=== PATIENT | female | born 1995 | race American Indian/Alaskan Native ===

== ENCOUNTER 2017-09-01 05:23 | Emergency (ER) | payer MEDICAID ==
[2017-09-01 05:34] VITALS: BP 110/78
[2017-09-01 06:25] LABS: Basophils % (Auto) 0.7 % (0.0-1.8); Eosinophils % (Auto) 3.4 % (0.0-4.3); Hematocrit 37.6 % (30.3-42.9); Hemoglobin 12.8 gm/dl (10.1-14.3); Mean Corpuscular HGB Conc 34 % (30-34); Mean Corpuscular Hemoglobin 29 pg (28-32); Mean Corpuscular Volume 85 fl (79-97); Platelet Count 258 K/mm3 (140-440); Red Cell Distribution Width 15.1 % (13.2-15.2); White Blood Count 5.5 K/mm3 (4.5-11.0)
[2017-09-01 06:38] LABS: Alanine Aminotransferase 10 units/L (7-56); Albumin 4.3 g/dL (3.9-5); Albumin/Globulin Ratio 1.5 %; Alkaline Phosphatase 56 units/L (35-129); Anion Gap 18 mmol/L; BUN/Creatinine Ratio 20; Blood Urea Nitrogen 8 mg/dL (7-17); Calcium 8.6 mg/dL (8.4-10.2); Carbon Dioxide 23 mmol/L (22-30); Chloride 104.6 mmol/L (98-107); Glucose 90 mg/dL (65-100); Lipase 23 units/L (13-60); Potassium 3.8 mmol/L (3.6-5.0); Sodium 142 mmol/L (137-145); Total Protein 7.2 g/dL (6.3-8.2)
[2017-09-01 07:23] LABS: Bilirubin,Urine NEG (Negative); Blood,Urine LG (Negative); Ketones,Urine NEG (Negative); Leukocyte Esterase,Urine TR (Negative); Nitrite,Urine NEG (Negative); Urobilinogen,Urine < 2.0 mg/dL (<2.0)
[2017-09-01 07:31] LABS: RBC,Urine > 182.0 /HPF (0.0-6.0)
[2017-09-01] MEDS ORDERED: TORADOL IM ONE ×2 (10:42→10:43)
--- NOTE | 2017-09-01 10:44 | Emergency Department Report ---
ED Abdominal Pain HPI - General Chief Complaint: Abdominal Pain Stated Complaint: LOWER ABD/UPPER BACK PAIN Time Seen by Provider: 09/01/17 09:35 Source: patient Mode of arrival: Wheelchair Limitations: No Limitations - History of Present Illness Initial Comments: This is a 22-year-old female nontoxic, well nourished in appearance, no acute signs of distress presents to the ED complaining of pelvic pain, bilateral thigh pain and low back pain 3 days. He describes the pain as cramping sensation and bilateral thighs and low back pain. Patient denies any abdominal pain, nausea, vomiting, chest pain, shortness of breath, numbness, tingling, dysuria, polyuria, vaginal discharge, hematuria area, fever, chills, stiff neck or headache. Patient states she is currently on her menstrual cycle. Patient stated she currently develops similar symptoms prior to her menstrual cycle but stated symptoms are usually resolved the day of menstrual cycle. Patient stated today is the second day of her menstrual cycle and symptoms has not resolved yet. Patient stated she came into the emergency room to evaluate the reason why she is having cramping sensation because initiated. Subsided by now , as per patient stated. Patient denies any allergies. MD Complaint: other (pelvic cramping pain) -: days(s) (3) Radiation: none Migration to: no migration Severity: mild Severity scale (0 -10): 4 Quality: cramping Consistency: constant Improves With: nothing Worsens With: nothing Associated Symptoms: denies other symptoms. denies: nausea, vomiting, diarrhea , fever, chills, constipation, dysuria, hematemesis, hematochezia, melena, hematuria, anorexia, syncope - Related Data Home Medications Medication Instructions Recorded Confirmed Last Taken Percocet 5/325 mg 1 tab PO Q6H PRN 08/09/16 08/09/16 Unknown Previous Rx's Medication Instructions Recorded Last Taken Type Acetaminophen/Codeine [Tylenol #3] 1 tab PO Q6H PRN #10 tab 08/09/16 Unknown Rx Amoxicillin [Trimox CAP] 500 mg PO Q8H #21 capsule 08/09/16 Unknown Rx Diclofenac Sodium 75 mg PO BID #14 tablet. 08/09/16 Unknown Rx Ibuprofen [Motrin 600 MG tab] 600 mg PO Q8H PRN #30 tablet 09/01/17 Unknown Rx Sulfamethoxazole/Trimethoprim 1 each PO BID #14 tablet 09/01/17 Unknown Rx [Bactrim Ds Tablet] Allergies Allergy/AdvReac Type Severity Reaction Status Date / Time No Known Allergies Allergy Verified 06/07/16 20:56 ED Review of Systems ROS: Stated complaint: LOWER ABD/UPPER BACK PAIN Other details as noted in HPI Constitutional: denies: chills, fever Eyes: denies: eye pain, eye discharge, vision change ENT: denies: ear pain, throat pain Respiratory: denies: cough, shortness of breath, wheezing Cardiovascular: denies: chest pain, palpitations Endocrine: no symptoms reported Gastrointestinal: other (pelvic cramping). denies: abdominal pain, nausea, diarrhea Genitourinary: denies: urgency, dysuria, discharge Musculoskeletal: denies: back pain, joint swelling, arthralgia Skin: denies: rash, lesions Neurological: denies: headache, weakness, paresthesias Psychiatric: denies: anxiety, depression Hematological/Lymphatic: denies: easy bleeding, easy bruising ED Past Medical Hx - Past Medical History Previous Medical History?: Yes Additional medical history: Charcot Gaby Tooth, Cyctic Breasts, epilepsy - Surgical History Past Surgical History?: Yes Additional Surgical History: Bilateral Cysts Removal, bilateral foot surgery - Social History Smoking Status: Never Smoker Substance Use Type: None - Medications Home Medications: Home Medications Medication Instructions Recorded Confirmed Last Taken Type Acetaminophen/Codeine [Tylenol #3] 1 tab PO Q6H PRN #10 tab 08/09/16 Unknown Rx Amoxicillin [Trimox CAP] 500 mg PO Q8H #21 capsule 08/09/16 Unknown Rx Diclofenac Sodium 75 mg PO BID #14 tablet. 08/09/16 Unknown Rx Percocet 5/325 mg 1 tab PO Q6H PRN 08/09/16 08/09/16 Unknown History Ibuprofen [Motrin 600 MG tab] 600 mg PO Q8H PRN #30 tablet 09/01/17 Unknown Rx Sulfamethoxazole/Trimethoprim 1 each PO BID #14 tablet 09/01/17 Unknown Rx [Bactrim Ds Tablet] ED Physical Exam - General Limitations: No Limitations General appearance: alert, in no apparent distress - Head Head exam: Present: atraumatic, normocephalic, normal inspection - Eye Eye exam: Present: normal appearance, PERRL, EOMI. Absent: scleral icterus, conjunctival injection, nystagmus, periorbital swelling, periorbital tenderness Pupils: Present: normal accommodation - ENT ENT exam: Present: normal exam, normal orophraynx, mucous membranes moist, TM's normal bilaterally, normal external ear exam - Neck Neck exam: Present: normal inspection, full ROM. Absent: tenderness, meningismus, lymphadenopathy, thyromegaly - Respiratory Respiratory exam: Present: normal lung sounds bilaterally. Absent: respiratory distress, wheezes, rales, rhonchi, stridor, chest wall tenderness, accessory muscle use, decreased breath sounds, prolonged expiratory - Cardiovascular Cardiovascular Exam: Present: regular rate, normal rhythm. Absent: systolic murmur, diastolic murmur, rubs, gallop - GI/Abdominal GI/Abdominal exam: Present: soft, normal bowel sounds. Absent: distended, tenderness, guarding, rebound, rigid, diminished bowel sounds, hyperactive bowel sounds, hypoactive bowel sounds - Expanded GI/Abdominal Exam Expanded GI/Abdominal exam: Absent: psoas sign, obturator sign, heel tap sign, Reardon's sign, Rovsing's sign, tenderness at Mcburney's Point, ascites - Rectal Rectal exam: Present: deferred - Extremities Exam Extremities exam: Present: normal inspection, full ROM, normal capillary refill. Absent: tenderness, pedal edema, joint swelling, calf tenderness - Back Exam Back exam: Present: normal inspection, full ROM. Absent: tenderness, CVA tenderness (R), CVA tenderness (L), muscle spasm, paraspinal tenderness, vertebral tenderness, rash noted - Neurological Exam Neurological exam: Present: alert, oriented X3, CN II-XII intact, normal gait, reflexes normal - Psychiatric Psychiatric exam: Present: normal affect, normal mood - Skin Skin exam: Present: warm, dry, intact, normal color. Absent: rash ED Course Vital Signs 09/01/17 09/01/17 05:32 05:38 Temperature 98.0 F 98.0 F Pulse Rate 77 69 Respiratory 18 17 Rate Blood Pressure 110/78 110/78 O2 Sat by Pulse 98 99 Oximetry - Reevaluation(s) Reevaluation #1: 09/01/17 10:44 Patient is speaking in full sentences with no signs of distress noted. ED Medical Decision Making - Lab Data Result diagrams: 09/01/17 06:05 09/01/17 06:05 - Medical Decision Making 22-year-old female presents with pelvic cramping, UTI, and menstrual cycle. Patient was examined by me condition is good. Patient stated she is requesting for an ultrasound in the ED. I instructed the patient that the symptoms the patient is describing is a normal experience during the little cramping the patient stated this should've been resolved prior to menstrual cycle. Patient stated this is a normal symptoms prior to menstrual cycle but is usually resolved and patient is concerned why it is not result. Due to patient's request an ultrasound has been obtained and pelvic region and dictated by radiologist with normal examination. Patient was notified of some reported. UA indicates elevated WBCs. Patient received Bactrim 7 days at discharge. Patient also received Toradol 30 mg IM and ED with patient's dissipated symptoms of cramping has completely resolved and patient currently denies any pelvic pain or cramping or back pain or bilateral thigh extremity cramping. Patient received Motrin 600 mg by mouth at discharge. Patient was instructed to follow-up with a primary care doctor in 3-5 days or if symptoms worsen and continue return to emergency room as soon as possible possible. Patient is hemodynamically stable with stable vital signs. Patient states he is feeling better. At time time of discharge, the patient does not seem toxic or ill in appearance. No acute signs of distress noted. Patient agrees to discharge treatment plan of care. No further questions noted by the patient. Critical care attestation.: If time is entered above; I have spent that time in minutes in the direct care of this critically ill patient, excluding procedure time. ED Disposition Clinical Impression: Pelvic cramping UTI (urinary tract infection) Qualifiers: Urinary tract infection type: site unspecified Hematuria presence: with hematuria Qualified Code(s): N39.0 - Urinary tract infection, site not specified Disposition: DC-01 TO HOME OR SELFCARE Is pt being admited?: No Does the pt Need Aspirin: No Condition: Stable Instructions: Ibuprofen (By mouth), Urinary Tract Infection in Women (ED) Additional Instructions: Follow-up with a primary care doctor in 3-5 days or if symptoms worsen and continue return to emergency room as soon as possible possible. Prescriptions: Ibuprofen [Motrin 600 MG tab] 600 mg PO Q8H PRN #30 tablet PRN Reason: Pain Sulfamethoxazole/Trimethoprim [Bactrim Ds Tablet] 1 each PO BID #14 tablet Referrals: PRIMARY CARE, [Primary Care Provider] - 3-5 Days BERTHA ELKINS MD [Staff Physician] - 3-5 Days ZACHARIAH ESTRADA MD [Staff Physician] - 3-5 Days [facility] [Outside] - 3-5 Days [facility] [Outside] - 3-5 Days Forms: Work/School Release Form(ED)
--- NOTE | 2017-09-01 11:54 | Ultrasound Report ---
ULTRASOUND PELVIC COMPLETE ULTRASOUND TRANSVAGINAL HISTORY: Pelvic pain, cramping, vaginal bleeding. TECHNIQUE: Transabdominal and transvaginal ultrasound with color and spectral doppler interrogation. Compared to 06/07/16. The uterus is anteverted. The uterus measures 6.3 x 3.2 x 3.7 cm. No uterine fibroid disease is suspected. The endometrial stripe is homogeneous and measures 10 mm in thickness. The right ovary measures 2.9 x 1.9 x 2.5 cm. A 1.5 cm right ovarian cyst is identified. The left ovary measures 3.0 x 2.4 x 2.3 cm. A 1.6 cm left ovarian cyst is identified. No pelvic ascites. Images through the bladder are unremarkable. IMPRESSION: Bilateral simple ovarian cysts as described. No clear explanation for vaginal bleeding.
== END 2017-09-01 12:58 | disposition home or self-care (01) ==
LOC: ED 05:23
DX: R10.2 Pelvic and perineal pain (principal); N39.0 Urinary tract infection, site not specified; M79.651 Pain in right thigh; M79.652 Pain in left thigh; Z98.890 Other specified postprocedural states
CPT/HCPCS: 36415; 76830; 76856; 80053; 81001; 81025; 83690; 85025; 96372; 99284; J1885

== ENCOUNTER 2018-03-06 13:29 | Emergency (ER) | payer MEDICAID ==
--- NOTE | 2018-03-06 14:44 | Emergency Department Report ---
Chief Complaint: Medical Clearance Stated Complaint: NAUSEA/VOMITING Time Seen by Provider: 03/06/18 14:38 - HPI History of Present Illness: 22-year-old female who presents the emergency department with the question of whether or not she is . She has been having some nausea and gagging/retching, occasional headaches and the patient says that she has "signs that she is ". One of the signs that she took a home test that was positive. Her last menstrual cycle was February 04 and she says she is normally 28 days for a cycle and says that she is currently late. She has never been before. She has not taken anything for her symptoms on presentation. [employer] is life cycle. - ROS Review of Systems: Positive for nausea with occasional vomiting, intermittent headache Negative for chest pain, shortness of breath, dysuria, vaginal bleeding or discharge - Exam Vital Signs: Vital Signs 03/06/18 13:31 Temperature 98.7 F Pulse Rate 100 H Respiratory 15 Rate Blood Pressure 117/60 O2 Sat by Pulse 100 Oximetry Physical Exam: Pupils equal and reactive to light bilaterally. Extraocular motion intact. Heart and lung sounds are normal auscultation. She is awake and alert and in no acute distress. MSE screening note: Focused history and physical exam performed. Due to findings the following was ordered: A CBC, BMP and serum test have been ordered. ED Disposition for MSE Condition: Stable Referrals: PRIMARY CARE, [Primary Care Provider] - 3-5 Days
[2018-03-06 15:43] LABS: Basophils % (Auto) 0.7 % (0.0-1.8); Eosinophils # (Auto) 0.1 K/mm3 (0.0-0.4); Eosinophils % (Auto) 1.6 % (0.0-4.3); Hematocrit 39.2 % (30.3-42.9); Hemoglobin 12.6 gm/dl (10.1-14.3); Lymphocytes # (Auto) 1.8 K/mm3 (1.2-5.4); Mean Corpuscular HGB Conc 32 % (30-34); Mean Corpuscular Hemoglobin 27 pg (28-32); Mean Corpuscular Volume 85 fl (79-97); Monocytes # (Auto) 0.6 K/mm3 (0.0-0.8); Monocytes % (Auto) 9.4 % (0.0-7.3); Platelet Count 318 K/mm3 (140-440); Red Blood Count 4.61 M/mm3 (3.65-5.03); Red Cell Distribution Width 13.6 % (13.2-15.2)
[2018-03-06 15:58] LABS: BUN/Creatinine Ratio 13; Blood Urea Nitrogen 5 mg/dL (7-17); Calcium 9.7 mg/dL (8.4-10.2); Hemolysis Index 38
--- NOTE | 2018-03-06 17:50 | Emergency Department Report ---
HPI - General Chief Complaint: Medical Clearance Time Seen by Provider: 03/06/18 14:38 - HPI HPI: 22 year-old female presents with a two-week history of lower abdominal and/or pelvic discomfort. It is associated with some nausea without vomiting and some diarrhea. She denies any vaginal bleeding, dysuria, vaginal discharge, fever, back pain. She has not taken anything for her symptoms prior to presentation. She is visiting her family from [place] and therefore does not have any local physicians. Patient said she has some nausea and headache also. Last menstrual period was February 04. She was seen and screening by Dr. Scott who she told she was having abdominal pain. Vaginal cramping comes and goes. Located lower abdomen and to rule out a 10. Nothing makes it better and nothing makes it worse. ED Past Medical Hx - Past Medical History Previous Medical History?: Yes Hx Asthma: Yes Additional medical history: Charcot Gaby Tooth, Cyctic Breasts, epilepsy, scoliosis - Surgical History Past Surgical History?: Yes Additional Surgical History: Bilateral Cysts Removal, bilateral foot surgery, pt also c/o dizziness, headache, A&Ox4,NAD noted - Family History Family history: hypertension - Social History Smoking Status: Never Smoker Substance Use Type: None - Medications Home Medications: Home Medications Medication Instructions Recorded Confirmed Last Taken Type Acetaminophen/Codeine [Tylenol #3] 1 tab PO Q6H PRN #10 tab 08/09/16 Unknown Rx Amoxicillin [Trimox CAP] 500 mg PO Q8H #21 capsule 08/09/16 Unknown Rx Diclofenac Sodium 75 mg PO BID #14 tablet. 08/09/16 Unknown Rx Percocet 5/325 mg 1 tab PO Q6H PRN 08/09/16 08/09/16 Unknown History Ibuprofen [Motrin 600 MG tab] 600 mg PO Q8H PRN #30 tablet 09/01/17 Unknown Rx Sulfamethoxazole/Trimethoprim 1 each PO BID #14 tablet 09/01/17 Unknown Rx [Bactrim Ds Tablet] ED Review of Systems ROS: Stated complaint: NAUSEA/VOMITING Other details as noted in HPI Comment: All other systems reviewed and negative Constitutional: no symptoms reported Eyes: denies: eye pain, eye discharge ENT: denies: ear pain, throat pain, congestion Respiratory: no symptoms reported Cardiovascular: denies: chest pain, palpitations, dyspnea on exertion, edema, syncope, paroxysmal nocturnal dyspnea Gastrointestinal: abdominal pain, nausea. denies: vomiting, diarrhea, constipation, hematemesis, melena, hematochezia Genitourinary: denies: urgency, dysuria, hematuria, discharge, abnormal menses, dyspareunia Musculoskeletal: denies: back pain, joint swelling, arthralgia, myalgia Skin: denies: rash Neurological: headache. denies: weakness, numbness, paresthesias, confusion, abnormal gait, vertigo Physical Exam - Physical Exam Vital Signs: Vital Signs 03/06/18 13:31 Temperature 98.7 F Pulse Rate 100 H Respiratory 15 Rate Blood Pressure 117/60 O2 Sat by Pulse 100 Oximetry Vital Signs 03/06/18 03/06/18 13:31 18:33 Temperature 98.7 F 98.2 F Pulse Rate 100 H 96 H Respiratory 15 16 Rate Blood Pressure 117/60 Blood Pressure 112/62 [Right] O2 Sat by Pulse 100 100 Oximetry General: 22-year-old female well-nourished well-developed in no acute distress. Physical Exam: Head: Normocephalic, atraumatic, no abrasion, no bruising and no contusion. Eyes: Biateral pupils equal and reactive to light, bilateral EOM intact.. Bilateral conjunctival and sclera without injection, normal accommodation. No nystagmus Mouth: Mucosa dry, no pharyngeal exudate or erythema. No peritonsillar abscesses. Uvula is midline and oral airways patent. Neck: Supple, No Cervical adenopathy, full range of motion and no C-spine tenderness. No swelling or tracheal deviation normal reflexes Cardiovascular: S1, S2. Regular rate and rhythm. No murmur. Capillary refill is less then 3 seconds. Lungs: Clear to auscultate bilaterally. No rhonchi, wheezes or rales. No chest wall tenderness. No chest contusion. No bruising to chest. Abdomen: Non-tender to palpate in all quadrants, no guarding or rebound tenderness, positive bowel sounds in all quadrants. No CVA tenderness. No hernia, bruit or mass. No rigidity or distention. Extremities: No clubbing, cyanosis or edema. +2 pulses. No neurovascular compromise Skin: Clean, dry and intact. No rash or lesions. Psych: Normal mood and behavior ED Course Vital Signs 03/06/18 13:31 Temperature 98.7 F Pulse Rate 100 H Respiratory 15 Rate Blood Pressure 117/60 O2 Sat by Pulse 100 Oximetry - Reevaluation(s) Reevaluation #1: 03/06/18 20:04 Patient stable throughout ED course. Her lab work was stable and positive but patient decided that she would not wait for ultrasound and discharge instruction paperwork. She is aware that she is and she needs to follow-up with [facility] and increase her fluid intake. She is also aware that she needs to start a vitamin. Discharge instruction was given verbally but patient did not wait for paperwork ED Medical Decision Making - Lab Data Result diagrams: 03/06/18 15:17 03/06/18 15:17 Lab Results 03/06/18 03/06/18 03/06/18 Range/Units 15:17 15:17 15:17 WBC 6.6 (4.5-11.0) K/mm3 RBC 4.61 (3.65-5.03) M/mm3 Hgb 12.6 (10.1-14.3) gm/dl Hct 39.2 (30.3-42.9) % MCV 85 (79-97) fl MCH 27 L (28-32) pg MCHC 32 (30-34) % RDW 13.6 (13.2-15.2) % Plt Count 318 (140-440) K/mm3 Lymph % (Auto) 28.0 (13.4-35.0) % Bent % (Auto) 9.4 H (0.0-7.3) % Eos % (Auto) 1.6 (0.0-4.3) % Baso % (Auto) 0.7 (0.0-1.8) % Lymph # 1.8 (1.2-5.4) K/mm3 Bent # 0.6 (0.0-0.8) K/mm3 Eos # 0.1 (0.0-0.4) K/mm3 Baso # 0.0 (0.0-0.1) K/mm3 Seg Neutrophils % 60.3 (40.0-70.0) % Seg Neutrophils # 4.0 (1.8-7.7) K/mm3 Sodium 136 L (137-145) mmol/L Potassium 4.1 (3.6-5.0) mmol/L Chloride 100.4 (98-107) mmol/L Carbon Dioxide 22 (22-30) mmol/L Anion Gap 18 mmol/L BUN 5 L (7-17) mg/dL Creatinine 0.4 L (0.7-1.2) mg/dL Estimated GFR > 60 ml/min BUN/Creatinine Ratio 13 % Glucose 84 (65-100) mg/dL Calcium 9.7 (8.4-10.2) mg/dL HCG, Qual Positive (Negative) HCG, Quant (0-4) mIU/mL 03/06/18 Range/Units 15:17 WBC (4.5-11.0) K/mm3 RBC (3.65-5.03) M/mm3 Hgb (10.1-14.3) gm/dl Hct (30.3-42.9) % MCV (79-97) fl MCH (28-32) pg MCHC (30-34) % RDW (13.2-15.2) % Plt Count (140-440) K/mm3 Lymph % (Auto) (13.4-35.0) % Bent % (Auto) (0.0-7.3) % Eos % (Auto) (0.0-4.3) % Baso % (Auto) (0.0-1.8) % Lymph # (1.2-5.4) K/mm3 Bent # (0.0-0.8) K/mm3 Eos # (0.0-0.4) K/mm3 Baso # (0.0-0.1) K/mm3 Seg Neutrophils % (40.0-70.0) % Seg Neutrophils # (1.8-7.7) K/mm3 Sodium (137-145) mmol/L Potassium (3.6-5.0) mmol/L Chloride (98-107) mmol/L Carbon Dioxide (22-30) mmol/L Anion Gap mmol/L BUN (7-17) mg/dL Creatinine (0.7-1.2) mg/dL Estimated GFR ml/min BUN/Creatinine Ratio % Glucose (65-100) mg/dL Calcium (8.4-10.2) mg/dL HCG, Qual (Negative) HCG, Quant 3865 H (0-4) mIU/mL - Radiology Data Radiology results: report reviewed Patient had ultrasound transabdominal and transvaginal which reports patient with intrauterine of uncertain viability. Correlation with serial beta hCG levels and follow-up ultrasound may help in further evaluation. Transvaginal ultrasound reports the same and also reports patient estimated gestational age is 5 weeks and 3 days. - Medical Decision Making ED course: Patient here to have test and also report that she was having abdominal cramping and had no concern for STDs and no vaginal bleeding. She had test done along with hormone which showed that she is has positive . Ultrasound transvaginal entrance abdominal place her at 5 units in 3 days and also report that patient would intrusion of uncertain viability and correlation with serial beta hCG levels and follow- up ultrasound may help further evaluation. Patient decided to leave before she got ultrasound results. I gave her results that she was and she needs to hydrate herself and start taking vitamin and also told her that she needs to follow-up at [facility] and she agreed. I also gave her Reglan 10 mg by mouth for nausea. She was able to tolerate oral liquids. Prior to ultrasound result patient decided to let the nurse know that she could wait around and she was leaving and I was told the patient left ED the patient decided to leave. She did not get her ultrasound results or her discharge instruction would [facility] follow-up. Patient's CBC and chemistry stable. Patient was seen and screening by Dr. Scott who placed orders. Critical care attestation.: If time is entered above; I have spent that time in minutes in the direct care of this critically ill patient, excluding procedure time. ED Disposition Clinical Impression: Nausea and vomiting during with uncertain viability Qualifiers: Fetus number: single or unspecified fetus Qualified Code(s): O36.80X0 - with inconclusive viability, not applicable or unspecified Abdominal pain Qualifiers: Abdominal location: lower abdomen, unspecified Qualified Code(s): R10.30 - Lower abdominal pain, unspecified Disposition: 07 ELOPED Is pt being admited?: No Does the pt Need Aspirin: No Condition: Undetermined Referrals: PRIMARY CARE, [Primary Care Provider] - 3-5 Days
[2018-03-06] MEDS ORDERED: REGLAN PO ONE (18:02)
[2018-03-06 18:34] VITALS: BP 112/62
--- NOTE | 2018-03-06 19:44 | Ultrasound Report ---
FINAL REPORT EXAM: US OB TRANSVAGINAL HISTORY: with abdominal pain TECHNIQUE: Transabdominal and transvaginal sonography of the pelvis. PRIORS: None for this . FINDINGS: There is an intrauterine gestational sac containing a yolk sac, but no pole identified. Ultrasound estimated gestational age is 5 weeks 3 days. Ultrasound estimated date of delivery is 03 November 2018. Right ovary measures 2.8 x 1.6 x 2.0 cm and is grossly unremarkable. Left ovary measures 3.5 x 2.1 x 2.8 cm and contains small, cystic focus measuring 1.5 cm, probably physiologic. No adnexal masses, ring-like structures or significant free peritoneal fluid. IMPRESSION: 1. Intrauterine of uncertain viability. Correlation with serial beta-hCG levels and follow-up ultrasound may help in further evaluation.
--- NOTE | 2018-03-06 19:45 | Ultrasound Report ---
FINAL REPORT EXAM: US OB < = 14 WEEKS FETUS HISTORY: with abdominal pain TECHNIQUE: Transvaginal sonography of the pelvis. PRIORS: None for this . FINDINGS: There is an intrauterine gestational sac containing a yolk sac, but no pole identified. Ultrasound estimated gestational age is 5 weeks 3 days. Ultrasound estimated date of delivery is 03 November 2018. Right ovary measures 2.8 x 1.6 x 2.0 cm and is grossly unremarkable. Left ovary measures 3.5 x 2.1 x 2.8 cm and contains small, cystic focus measuring 1.5 cm, probably physiologic. No adnexal masses, ring-like structures or significant free peritoneal fluid. IMPRESSION: 1. Intrauterine of uncertain viability. Correlation with serial beta-hCG levels and follow-up ultrasound may help in further evaluation.
== END 2018-03-06 19:57 | disposition left against medical advice (07) ==
LOC: ED 13:29
DX: O36.80X0 Pregnancy with inconclusive fetal viability, not applicable or unspecified (principal); O21.9 Vomiting of pregnancy, unspecified; O99.511 Diseases of the respiratory system complicating pregnancy, first trimester; Z3A.01 Less than 8 weeks gestation of pregnancy
CPT/HCPCS: 36415; 76801; 76817; 80048; 84702; 84703; 85025

== ENCOUNTER 2019-02-26 12:34 | Emergency (ER) | payer MEDICAID ==
[2019-02-26 12:39] VITALS: BP 139/82
--- NOTE | 2019-02-26 13:21 | Emergency Department Report ---
ED Lower Extremity HPI - General Chief Complaint: Extremity Injury, Lower Stated Complaint: RT KNEE PAIN Time Seen by Provider: 02/26/19 13:17 Source: patient Mode of arrival: Wheelchair Limitations: No Limitations - History of Present Illness Initial Comments: 23-year-old -[place] female presents to the emergency room stating that she had twisted her right knee while walking up stairs yesterday. Patient reports that it's ache and a 4 out of 10 and on the day but at night it shoots up to 8 out of 10. Patient reports that she took Advil at home to exam and has also taken ibuprofen 800 mg. Patient has no other complaints. Complaint: knee injury (right) -: days(s) (1) Injury: Knee: Right Improves With: immobilization Worsens With: weight bearing, palpation Context: fall (going upstairs) - Related Data Home Medications Medication Instructions Recorded Confirmed Last Taken Percocet 5/325 mg 1 tab PO Q6H PRN 08/09/16 08/09/16 Unknown Previous Rx's Medication Instructions Recorded Last Taken Type Acetaminophen/Codeine [Tylenol #3] 1 tab PO Q6H PRN #10 tab 08/09/16 Unknown Rx Amoxicillin [Trimox CAP] 500 mg PO Q8H #21 capsule 08/09/16 Unknown Rx Diclofenac Sodium 75 mg PO BID #14 tablet. 08/09/16 Unknown Rx Ibuprofen [Motrin 600 MG tab] 600 mg PO Q8H PRN #30 tablet 09/01/17 Unknown Rx Sulfamethoxazole/Trimethoprim 1 each PO BID #14 tablet 09/01/17 Unknown Rx [Bactrim Ds Tablet] Naproxen [Naprosyn] 500 mg PO BID #20 tablet 02/26/19 Unknown Rx Allergies Allergy/AdvReac Type Severity Reaction Status Date / Time No Known Allergies Allergy Verified 02/26/19 12:35 ED Review of Systems ROS: Stated complaint: RT KNEE PAIN Other details as noted in HPI Comment: All other systems reviewed and negative Musculoskeletal: arthralgia (right knee) ED Past Medical Hx - Past Medical History Hx Asthma: Yes Additional medical history: Charcot Gaby Tooth, Cyctic Breasts, epilepsy, scoliosis - Surgical History Additional Surgical History: cici ankle - Social History Smoking Status: Never Smoker Substance Use Type: None - Medications Home Medications: Home Medications Medication Instructions Recorded Confirmed Last Taken Type Acetaminophen/Codeine [Tylenol #3] 1 tab PO Q6H PRN #10 tab 08/09/16 Unknown Rx Amoxicillin [Trimox CAP] 500 mg PO Q8H #21 capsule 08/09/16 Unknown Rx Diclofenac Sodium 75 mg PO BID #14 tablet. 08/09/16 Unknown Rx Percocet 5/325 mg 1 tab PO Q6H PRN 08/09/16 08/09/16 Unknown History Ibuprofen [Motrin 600 MG tab] 600 mg PO Q8H PRN #30 tablet 09/01/17 Unknown Rx Sulfamethoxazole/Trimethoprim 1 each PO BID #14 tablet 09/01/17 Unknown Rx [Bactrim Ds Tablet] Naproxen [Naprosyn] 500 mg PO BID #20 tablet 02/26/19 Unknown Rx ED Physical Exam - General Limitations: No Limitations General appearance: alert, in no apparent distress - Head Head exam: Present: atraumatic, normocephalic - Eye Eye exam: Present: normal appearance - ENT ENT exam: Present: mucous membranes moist - Expanded Lower Extremity Exam Left Knee exam: Present: full ROM, tenderness (medial aspect), full knee extension. Absent: swelling, abrasion, laceration, ecchymosis, deformity, crepidus, erythema, posterior draw sign, pain/laxity with valgus, pain/laxity with varus Lower Leg exam: Present: normal inspection Ankle exam: Present: normal inspection Foot/Toe exam: Present: normal inspection - Neurological Exam Neurological exam: Present: alert, oriented X3 - Psychiatric Psychiatric exam: Present: normal affect, normal mood - Skin Skin exam: Present: warm, dry, intact, normal color. Absent: rash ED Course Vital Signs 02/26/19 12:37 Temperature 98.1 F Pulse Rate 83 Respiratory 16 Rate Blood Pressure 139/82 O2 Sat by Pulse 97 Oximetry ED Lower Extremity MDM - Radiology Data Radiology results: report reviewed No fractures or dislocation. Mild effusion. - Medical Decision Making Patient is been evaluated by this provider fast track. X-ray of right knee shows no fractures but mild effusion. Place patient on knee immobilizer crutches and schedule proximal and for the next few days and to follow-up with Dr. Finley if her symptoms persist or gets worse. Critical care attestation.: If time is entered above; I have spent that time in minutes in the direct care of this critically ill patient, excluding procedure time. ED Disposition Clinical Impression: Sprain of right knee Qualifiers: Encounter type: initial encounter Involved ligament of knee: unspecified collateral ligament Qualified Code(s): S83.401A - Sprain of unspecified collateral ligament of right knee, initial encounter Effusion of knee joint Qualifiers: Laterality: right Qualified Code(s): M25.461 - Effusion, right knee Disposition: TO HOME OR SELFCARE Is pt being admited?: No Does the pt Need Aspirin: No Condition: Stable Instructions: Osteoarthritis (ED), Knee Effusion (ED) Additional Instructions: Please take pain medication as needed. Use crutches to help ambulate wear knee immobilizer and to follow up with Dr. Finley orthopedic provider. Prescriptions: Naproxen [Naprosyn] 500 mg PO BID #20 tablet Referrals: IVIS FINLEY MD [Staff Physician] - 3-5 Days Forms: Work/School Release Form(ED)
--- NOTE | 2019-02-26 13:31 | XRay Report ---
PROCEDURE: XR KNEE 3V RT TECHNIQUE: 3 view examination of the right knee HISTORY: Fall, pain COMPARISONS: None FINDINGS: Slight nonspecific soft tissue prominence superior to the patella on the lateral view may reflect sma ll knee joint effusion. There is no radiographic evidence of definite acute fracture or dislocation. No evidence of osseous lesion. Joint spaces are maintained. There is no evidence of significant degenerative arthrosis. IMPRESSION: No definite radiographically visible acute skeletal pathology Suggestion of small joint effusion This document is electronically signed by Mathew Ayoub MD., February 26 2019 01:29:43 PM ET
== END 2019-02-26 14:18 | disposition home or self-care (01) ==
LOC: ED 12:34
DX: S83.401A Sprain of unspecified collateral ligament of right knee, initial encounter (principal); M25.461 Effusion, right knee; J45.909 Unspecified asthma, uncomplicated; G40.909 Epilepsy, unspecified, not intractable, without status epilepticus; F17.200 Nicotine dependence, unspecified, uncomplicated; X50.1XXA Overexertion from prolonged static or awkward postures, initial encounter; Y93.01 Activity, walking, marching and hiking; Y92.89 Other specified places as the place of occurrence of the external cause; Y99.8 Other external cause status
CPT/HCPCS: 99283